=== PATIENT | female | born 1965 | race Caucasian/White ===

== ENCOUNTER 2017-11-23 02:01 | Emergency (ER) | payer OTHER, MEDICAID, SELFPAY ==
--- NOTE | 2017-11-23 02:11 | DI.RAD.S_ITS ---
PROCEDURE: XR CHEST 1V INDICATIONS: cough TECHNIQUE: One view of the chest was acquired. COMPARISON: None. FINDINGS: Surgical changes and devices: None. Lungs and pleura: No pleural effusions or pneumothorax. Mild increased bronchovascular markings and bilateral hilar region are seen with mild bronchial wall thickening suggestive of reactive airway disease. No focal infiltrate. Mediastinum: Mediastinal contours appear normal. Heart size is normal. Bones and chest wall: No suspicious bony lesions. Overlying soft tissues appear unremarkable. IMPRESSION: Suggestion of mild reactive airway disease. No definite focal infiltrate or gross pneumothorax. Dictated by: Davy Rees M.D. on 11/23/2017 at 8:14 Approved by: Davy Rees M.D. on 11/23/2017 at 8:16
[2017-11-23 02:12] VITALS: BP 155/91; PULSE 100; RESP 20; TEMP 36.6; O2SAT 96; BMI 44.3
--- NOTE | 2017-11-23 02:14 | ED.URI ---
HPI - URI/Sore Throat General Chief Complaint: Upper Respiratory Symptoms Stated Complaint: coughing so hard ribs/back hurt/hard to breath Time Seen by Provider: 11/23/17 02:10 Source: patient Mode of arrival: ambulatory Limitations: no limitations History of Present Illness HPI Narrative: 52-year-old female here for 5 days of a cough. Is nonproductive. Does have an albuterol inhaler at home which she takes but states this is not helping. No fevers But does feel like her face is flushed. States that she has been coughing so much that her sides hurt And she has been having problems sleeping. Related Data Home Medications Medication Instructions Recorded Confirmed citalopram 20 mg PO QPM #0 02/13/17 hydrochlorothiazide 25 mg PO QPM #0 02/13/17 lamotrigine 150 mg PO QPM #0 02/13/17 albuterol sulfate [Proventil HFA] 2 puff INH PRN PRN #0 03/10/17 diclofenac sodium [Voltaren] 1 laron TOPICAL QID #0 03/10/17 divalproex [Depakote ER] 500 mg PO QPM #0 03/10/17 Previous Rx's Medication Instructions Recorded diazepam [Valium] 5 mg PO Q8HP PRN #10 tab 06/07/17 meloxicam [Mobic] 7.5 mg PO BIDCC #20 tab 06/07/17 benzonatate 100 mg PO TID PRN #20 cap 11/23/17 Allergies Allergy/AdvReac Type Severity Reaction Status Date / Time No Known Allergies Allergy Uncoded 06/22/17 11:47 Review of Systems Constitutional Denies chills and Denies fever(s) Cardiovascular Denies chest pain and Denies dyspnea Respiratory Reports cough and Denies dyspnea Gastrointestinal Gastrointestinal: Denies abdominal pain Musculoskeletal Comments: Ribs hurt Integumentary/Breasts Denies lesions and Denies rash Hematologic/Lymphatic Denies easy bleeding and Denies easy bruising [facility] Medical History Healthy adult (Acute) Surgical History No pertinent past surgical history (Acute) Social History Smoking Status: Current every day smoker Exam Initial Vital Signs Initial Vital Signs: Vital Signs Temperature 97.8 F 11/23/17 02:12 Pulse Rate 100 H 11/23/17 02:12 Respiratory Rate 20 11/23/17 02:12 Blood Pressure 155/91 H 11/23/17 02:12 Pulse Oximetry 96 11/23/17 02:12 Const General: cooperative and comfortable Resp Effort & Inspection: normal respiratory effort Auscultation: clear to auscultation bilaterally, no rales, no rhonchi and no wheezes Cardio Rate: regular rate Rhythm: regular rhythm Skin Lesions: no lesions Rashes: no rashes Neuro General: alert, awake and oriented x3 Extrem General: normal to inspection and capillary refill normal Psych Appearance: grossly normal and well kempt Course Orders Ordered: ED Orders 11/23/17 02:11 XR chest 1V Stat Vital Signs - 8 hr 11/23/17 02:12 Temperature 97.8 F Pulse Rate 100 H Respiratory Rate 20 Blood Pressure 155/91 H Pulse Oximetry 96 MDM - URI/Sore Throat Imaging Data Chest x-ray: Attestation: I personally reviewed and interpreted this imaging study as follows: My impression: no pneumonia, no pneumothorax, normal size heart MDM Narrative Medical decision making narrative: no pneumonia on the chest x-ray. Afebrile. No wheezing on exam. No indication for antibiotics. We did discuss treatment methods for the cough. No signs of rib fractures. Patient was given return precautions. She expressed understanding and agreement plan. Discharge Plan Departure Clinical Impression: Cough Instructions: Cough (Alternative Therapy), Cough Activity Restrictions/Additional Instructions: call your primary care doctor for follow-up. Sometimes a cough like this can last for several days. Make sure your drinking plenty of fluids. Return to the emergency department for any new or worsening symptoms. Prescriptions: New benzonatate 100 mg capsule 100 mg PO TID PRN (Reason: cough) Qty: 20 RF: 0 No Action lamotrigine 150 MG tablet 150 mg PO QPM Qty: 0 RF: 0 citalopram 20 MG tablet 20 mg PO QPM Qty: 0 RF: 0 hydrochlorothiazide 25 MG tablet 25 mg PO QPM Qty: 0 RF: 0 divalproex [Depakote ER] 500 MG tablet extended release 24 hr 500 mg PO QPM Qty: 0 RF: 0 albuterol sulfate [Proventil HFA] 90 MCG/PUFF HFA aerosol inhaler 2 puff INH PRN PRNQty: 0 RF: 0 diclofenac sodium [Voltaren] 1 % gel 1 laron Topical QID Qty: 0 RF: 0 meloxicam [Mobic] 7.5 MG tablet 7.5 mg PO BIDCC Qty: 20 RF: 0 diazepam [Valium] 5 MG tablet 5 mg PO Q8HP PRNQty: 10 RF: 0
[2017-11-23 02:35] VITALS: BP 155/91; PULSE 100; RESP 20; TEMP 36.6; O2SAT 96; BMI 44.3
[2017-11-23] MEDS: BENZONATATE 100 MG CAPSULE PO (02:43)
== END 2017-11-23 02:46 | disposition home or self-care (01) ==
PROVIDERS: Emergency Provider Emergency Medicine
DX: R05 Cough (principal)
CPT/HCPCS: 71045; 99282; 99283

== ENCOUNTER 2018-02-04 18:28 | Emergency (ER) | payer OTHER, MEDICAID, SELFPAY ==
[2018-02-04 18:38] VITALS: BP 139/89; PULSE 103; RESP 15; TEMP 36.7; O2SAT 99
--- NOTE | 2018-02-04 19:00 | ED.BACK ---
HPI - Back Pain/Injury <MIGUELITO Matthews - Last Filed: 02/04/18 22:10> General Chief Complaint: Back Pain/Injury Stated Complaint: states rib pain from coughing Time Seen by Provider: 02/04/18 19:01 Source: patient Mode of arrival: ambulatory Limitations: no limitations History of Present Illness HPI Narrative: 52-year-old female with history of bipolar resume and hyperthyroidism is an everyday smoker here for complaint of pain into her left lower rib cage over the past several days. She states she had pain to the ribcage is 1 month ago when she had a respiratory illness. She states that the pain room to her ribcage improved. She states that her return to the left side several days ago. She denies any trauma to the area. She denies any recent cough no fevers no chills. She reports increased pain with palpation to the area or movement. She denies any shortness of breath. She denies any other concerns or complaints at this time. Related Data Home Medications Medication Instructions Recorded Confirmed citalopram 20 mg PO QPM #0 02/13/17 hydrochlorothiazide 25 mg PO QPM #0 02/13/17 lamotrigine 150 mg PO QPM #0 02/13/17 albuterol sulfate [Proventil HFA] 2 puff INH PRN PRN #0 03/10/17 diclofenac sodium [Voltaren] 1 laron TOPICAL QID #0 03/10/17 divalproex [Depakote ER] 500 mg PO QPM #0 03/10/17 Previous Rx's Medication Instructions Recorded diazepam [Valium] 5 mg PO Q8HP PRN #10 tab 06/07/17 meloxicam [Mobic] 7.5 mg PO BIDCC #20 tab 06/07/17 benzonatate 100 mg PO TID PRN #20 cap 11/23/17 cyclobenzaprine 10 mg PO TID PRN #12 tab 02/04/18 Allergies Allergy/AdvReac Type Severity Reaction Status Date / Time No Known Drug Allergies Allergy Verified 02/04/18 19:57 Review of Systems <MIGUELITO Matthews - Last Filed: 02/04/18 22:10> Constitutional Denies chills, Denies fever(s), Denies lethargy and Denies weakness Eyes Denies change in vision, Denies eye discharge, Denies irritation and Denies loss of vision ENT Ears, Nose, Mouth, and Throat: Denies change in voice, Denies neck pain, Denies sore throat and Denies throat swelling Cardiovascular Denies chest pain, Denies irregular heart rhythm, Denies lightheadedness, Denies palpitations and Denies orthopnea Respiratory Denies wheezing Comments: Pain to left lower lateral rib cage Gastrointestinal Gastrointestinal: Denies abdominal pain, Denies change in bowel habits, Denies diarrhea, Denies nausea and Denies vomiting Genitourinary Denies hematuria, Denies flank pain, Denies urinary incontinence and Denies urinary urgency Musculoskeletal Denies neck pain Integumentary/Breasts Denies pruritus, Denies erythema, Denies rash and Denies wounds Neurologic Denies confusion, Denies loss of vision and Denies weakness Psychiatric Denies anxiety, Denies confusion, Denies depression, Denies homicidal ideation and Denies suicidal ideation Endocrine Denies palpitations Hematologic/Lymphatic Denies easy bruising Allergic/Immunologic Denies urticaria, Denies throat swelling and Denies wheezing Exam <MIGUELITO Matthews - Last Filed: 02/04/18 22:10> Initial Vital Signs Initial Vital Signs: Vital Signs Temperature 98.1 F 02/04/18 18:38 Pulse Rate 103 H 02/04/18 18:38 Respiratory Rate 15 02/04/18 18:38 Blood Pressure 139/89 02/04/18 18:38 Pulse Oximetry 99 02/04/18 18:38 Const General: cooperative and well developed Nutritional Appearance: well nourished Orientation: alert, awake, oriented x3 and not confused [facility] Mouth: oral mucosae normal and moist mucous membranes Eyes Conjunctivae: conjunctivae normal Sclera: sclerae normal Pupils: PERRL EOM: EOM intact bilaterally Resp Effort & Inspection: normal respiratory effort, able to speak in complete sentences, no respiratory distress and no use of accessory muscles Auscultation: clear to auscultation bilaterally, no rales, no rhonchi and no wheezes Cardio Rate: regular rate Rhythm: regular rhythm Heart Sounds: no click, no gallops, no murmurs and no rubs Pulses: normal peripheral pulses Skin General: no rashes or lesions noted, No jaundice and No petechiae Neuro General: alert, oriented x3, gait normal and no focal motor deficits Speech: speech normal <Roger Leger DO - Last Filed: 02/05/18 05:56> Initial Vital Signs Initial Vital Signs: Vital Signs Temperature 98.1 F 02/04/18 18:38 Pulse Rate 103 H 02/04/18 18:38 Respiratory Rate 15 02/04/18 18:38 Blood Pressure 139/89 02/04/18 18:38 Pulse Oximetry 99 02/04/18 18:38 Course <MIGUELITO Matthews - Last Filed: 02/04/18 22:10> Orders Ordered: Discontinued Medications Cyclobenzaprine HCl (Flexeril 10 Mg Prepack) 1 bottle MISC SEEINSTR ONE Stop: 02/04/18 19:54 Last Admin: 02/04/18 19:57 Dose: 1 bottle Vital Signs - 8 hr 02/04/18 18:38 02/04/18 20:00 Temperature 98.1 F Pulse Rate 103 H 102 H Respiratory Rate 15 15 Blood Pressure [Left Arm] 139/89 136/94 H Pulse Oximetry 99 99 <Roger Leger DO - Last Filed: 02/05/18 05:56> Orders Ordered: Discontinued Medications Cyclobenzaprine HCl (Flexeril 10 Mg Prepack) 1 bottle MISC SEEINSTR ONE Stop: 02/04/18 19:54 Last Admin: 02/04/18 19:57 Dose: 1 bottle Vital Signs - 8 hr 02/04/18 18:38 02/04/18 20:00 Temperature 98.1 F Pulse Rate 103 H 102 H Respiratory Rate 15 15 Blood Pressure [Left Arm] 139/89 136/94 H Pulse Oximetry 99 99 MDM - Back Pain/Injury <MIGUELITO Matthews - Last Filed: 02/04/18 22:10> Imaging Data Chest x-ray: Radiologist's impression: [address] [address] XRay Report Signed Patient: Rivka Lara KMR#: [id number] : 1965Acct:[id number] Age/Sex: 52 / FDate of Service: 02/04/18 Loc: ED Accession Number: [id number] Procedure: XR ribs LT min 3V w CXR1V Ordering Provider: Patrick Reed PROCEDURE: XR RIBS LT MIN 3V W CXR1V INDICATIONS: Pain to left lateral lower rib cage for last week TECHNIQUE: 3 views of the left ribs were acquired, along with a single view chest. COMPARISON: None. FINDINGS: Surgical changes and devices: None. Bones and chest wall: No fractures or dislocations. No suspicious bony lesions. Overlying soft tissues appear unremarkable. Lungs and pleura: No pleural effusions or pneumothorax. Lungs appear clear. Mediastinum: Mediastinal contours appear normal. Heart size is normal. IMPRESSION: No acute fracture. No osseous lesion. If clinical suspicion and/or symptoms persist, further assessment with repeat plainfilms, or advanced imaging (e.g., CT or bone scan) may be helpful for further assessment. Dictated by: Lashay Valenzuela M.D. on 02/04/2018 at 19:22 Approved by: Lashay Valenzuela M.D. on 02/04/2018 at 19:23 MDM Narrative Medical decision making narrative: X-ray of the chest and left ribcage was obtained was negative for any acute findings. Signs and symptoms presents as a strain into the left chest wall area. Rest area. [id number] ibuprofen as needed for any discomfort. Cyclobenzaprine as prescribed for any muscle spasms. Follow up with primary care provider later this week. For any worsening symptoms return to the emergency room. Discharge Plan Departure Patient Disposition: Home Clinical Impression: Left-sided chest wall pain Discharge Date/Time: 02/04/18 20:06 Interventions: ED Discharge Assessment Last Done: 02/04/18 20:05 Instructions: DI for Atypical Chest Pain Activity Restrictions/Additional Instructions: X-ray of the chest and left ribcage was obtained was negative for any acute findings. Signs and symptoms presents as a strain into the left chest wall area. Rest area. [id number] ibuprofen as needed for any discomfort. Cyclobenzaprine a muscle relaxer as prescribed for any muscle spasms no driving while on the muscle relaxer. Follow up with primary care provider later this week. For any worsening symptoms return to the emergency room. Prescriptions: New cyclobenzaprine 10 mg tablet 10 mg PO TID PRN (Reason: muscle spasm) Qty: 12 RF: 0 No Action lamotrigine 150 MG tablet 150 mg PO QPM Qty: 0 RF: 0 citalopram 20 MG tablet 20 mg PO QPM Qty: 0 RF: 0 hydrochlorothiazide 25 MG tablet 25 mg PO QPM Qty: 0 RF: 0 divalproex [Depakote ER] 500 MG tablet extended release 24 hr 500 mg PO QPM Qty: 0 RF: 0 albuterol sulfate [Proventil HFA] 90 MCG/PUFF HFA aerosol inhaler 2 puff INH PRN PRNQty: 0 RF: 0 diclofenac sodium [Voltaren] 1 % gel 1 laron Topical QID Qty: 0 RF: 0 meloxicam [Mobic] 7.5 MG tablet 7.5 mg PO BIDCC Qty: 20 RF: 0 diazepam [Valium] 5 MG tablet 5 mg PO Q8HP PRNQty: 10 RF: 0 benzonatate 100 mg capsule 100 mg PO TID PRN (Reason: cough) Qty: 20 RF: 0 Referrals: [facility] [Provider Group] <Roger Leger, DO - Last Filed: 02/05/18 05:56> Cosign ED Attending Thais Attestation: I was immediately available in the department for consultation. Documentation has been reviewed. I agree with assessment and plan.
--- NOTE | 2018-02-04 19:07 | DI.RAD.S_ITS ---
PROCEDURE: XR RIBS LT MIN 3V W CXR1V INDICATIONS: Pain to left lateral lower rib cage for last week TECHNIQUE: 3 views of the left ribs were acquired, along with a single view chest. COMPARISON: None. FINDINGS: Surgical changes and devices: None. Bones and chest wall: No fractures or dislocations. No suspicious bony lesions. Overlying soft tissues appear unremarkable. Lungs and pleura: No pleural effusions or pneumothorax. Lungs appear clear. Mediastinum: Mediastinal contours appear normal. Heart size is normal. IMPRESSION: No acute fracture. No osseous lesion. If clinical suspicion and/or symptoms persist, further assessment with repeat plainfilms, or advanced imaging (e.g., CT or bone scan) may be helpful for further assessment. Dictated by: Lashay Valenzuela M.D. on 02/04/2018 at 19:22 Approved by: Lashay Valenzuela M.D. on 02/04/2018 at 19:23
[2018-02-04] MEDS: CYCLOBENZAPRINE 10 MG PREPACK 1 BOTTLE MISC (19:57)
[2018-02-04 20:00] VITALS: BP 136/94; PULSE 102; RESP 15; O2SAT 99
== END 2018-02-04 20:06 | disposition home or self-care (01) ==
PROVIDERS: Emergency Provider Nurse Practitioner Family
DX: R07.89 Other chest pain (principal)
CPT/HCPCS: 71101; 99282; 99283

== ENCOUNTER → 2018-04-11 10:48 | Outpatient (CLI) | payer OTHER, MEDICAID, SELFPAY ==
--- NOTE | 2018-04-11 | DI.RAD.S_ITS ---
PROCEDURE: XR LUMBAR SPINE 2-3V INDICATIONS: chronic low back pain TECHNIQUE: 3 views of the lumbar spine were acquired. COMPARISON: [facility], CR, SPINE LUMB 2 OR 3VW, 07/20/2011, 15:17. [facility], CR, SPINE LUMB 2 OR 3VW, 06/27/2011, 11:37. FINDINGS: Bones: 5 [id number] vertebrae are present. There is normal bony alignment. No vertebral body compression fractures. No suspicious bony lesions. There is degenerative disc disease, moderate to severe at L4-L5 and L5-S1, moderate at L3-L4 and mild at L2 and L3. There is severe patellar sulci at L4-L5 and L5-S1. Soft tissues: Overlying bowel gas pattern is normal. No suspicious soft tissue calcifications. IMPRESSION: Degenerative disc and facet disease in lumbar spine as described. Dictated by: Torrie Vasquez M.D. on 04/11/2018 at 12:16 Approved by: Torrie Vasquez M.D. on 04/11/2018 at 12:20
[2018-04-11 12:07] LABS: Hemoglobin A1C% w Est Avg Glu 9.1 % (4.0-6.0)
[2018-04-11 12:15] LABS: Hematocrit 50.3 % (36-46); Hemoglobin 17.3 g/dL (12.0-16.0); Mean Corpuscular HGB Conc 34.3 % (30-36); Mean Corpuscular Hemoglobin 29.6 PG (26-34); Mean Corpuscular Volume 86.3 fL (80-100); Platelet Count 306 X10^3/uL (150-400); Red Blood Cell Count 5.82 X10^6/uL (4.0-5.2); Red Cell Distribution Width 13.8 % (11.6-14.8); White Blood Cell Count 10.7 X10^3/uL (4.5-11.0)
[2018-04-11 12:18] LABS: Add Manual Diff / Slide Review YES
[2018-04-11 12:32] LABS: Alanine Aminotransferase 66 IU/L (9-52); Albumin 4.6 g/dL (3.5-5.0); Albumin Globulin Ratio 1.2 (1.0-2.8); Alkaline Phosphatase 119 U/L (38-126); Aspartate Aminotransferase 47 IU/L (14-36); BUN Creatinine Ratio 21.3 (6-22); Bilirubin Total 0.6 mg/dL (0.2-1.3); Blood Urea Nitrogen 17 mg/dL (7-17); Calcium 9.6 mg/dL (8.4-10.2); Carbon Dioxide 29 mmol/L (22-32); Chloride 94 mmol/L (98-107); Cholesterol 235 mg/dL (140-199); Estimated Glomerular Filt Rate > 60.0 mL/min (>60); Globulin 3.8 g/dL (1.7-4.1); Glucose 187 mg/dL (70-100); HDL Cholesterol 34 mg/dL (40-60); HEMOLYSIS < 15 (0-50); LDL Cholesterol Calculated 162 mg/dL (<100); Potassium 3.6 mmol/L (3.4-5.1); Sodium 136 mmol/L (137-145); Total Protein 8.4 g/dL (6.3-8.2); Triglycerides 193 mg/dL (35-150)
[2018-04-11 12:46] LABS: Vitamin D 25 Hydroxy (D3) 20.1 ng/mL (30.0-100.0)
[2018-04-11 12:51] LABS: Neutrophils Absolute Manual 7169 /uL (3000-5900); RBC Morphology Normal Morphology; Total Cells Counted 100
== END ==
PROVIDERS: PCP Student in an Organized Health Care Education/Training Program; Visit Provider Student in an Organized Health Care Education/Training Program
DX: M54.5 Low back pain (principal); T50.2X5A Adverse effect of carbonic-anhydrase inhibitors, benzothiadiazides and other diuretics, initial encounter; M51.36 Other intervertebral disc degeneration, lumbar region; M51.37 Other intervertebral disc degeneration, lumbosacral region; D75.1 Secondary polycythemia; E87.6 Hypokalemia; I10 Essential (primary) hypertension; E66.9 Obesity, unspecified; R73.9 Hyperglycemia, unspecified; E55.9 Vitamin D deficiency, unspecified; G89.29 Other chronic pain; F17.200 Nicotine dependence, unspecified, uncomplicated; Z79.899 Other long term (current) drug therapy
CPT/HCPCS: 36415; 72100; 80053; 80061; 82306; 83036; 85025

== ENCOUNTER → 2018-08-08 15:08 | Outpatient (CLI) | payer OTHER, MEDICAID, SELFPAY ==
[2018-08-08 16:14] LABS: Hemoglobin A1C% w Est Avg Glu 8.4 % (4.0-6.0)
[2018-08-08 17:06] LABS: Cholesterol 148 mg/dL (140-199); HDL Cholesterol 36 mg/dL (40-60); LDL Cholesterol Calculated 70 mg/dL (<100); Triglycerides 209 mg/dL (35-150)
[2018-08-08 18:07] LABS: Creatinine Urine Random 122.9 mg/dL
[2018-08-08 18:11] LABS: Microalbumi Creatinin Ratio Ur 9.7 ug/mg CR (<30); Microalbumin Urine Random 1.2 mg/dL (0-1.6)
== END ==
PROVIDERS: PCP Student in an Organized Health Care Education/Training Program; Visit Provider Student in an Organized Health Care Education/Training Program
DX: E11.69 Type 2 diabetes mellitus with other specified complication (principal); E11.9 Type 2 diabetes mellitus without complications; E55.9 Vitamin D deficiency, unspecified; E78.2 Mixed hyperlipidemia; I10 Essential (primary) hypertension; Z79.899 Other long term (current) drug therapy
CPT/HCPCS: 36415; 80061; 82043; 82570; 83036

== ENCOUNTER → 2019-02-20 08:38 | Outpatient (CLI) | payer OTHER, MEDICAID, SELFPAY ==
[2019-02-20 09:35] LABS: Hemoglobin A1C% w Est Avg Glu 7.6 % (4.0-6.0)
== END ==
PROVIDERS: PCP Student in an Organized Health Care Education/Training Program; Visit Provider Student in an Organized Health Care Education/Training Program
DX: E11.69 Type 2 diabetes mellitus with other specified complication (principal); E78.2 Mixed hyperlipidemia
CPT/HCPCS: 36415; 83036

== ENCOUNTER → 2019-08-16 11:46 | Outpatient (CLI) | payer OTHER, MEDICAID, SELFPAY ==
[2019-08-16 12:46] LABS: Hematocrit 46.2 % (36-46); Hemoglobin 15.6 g/dL (12.0-16.0); Mean Corpuscular HGB Conc 33.7 % (30-36); Mean Corpuscular Volume 86.1 fL (80-100); Platelet Count 299 X10^3/uL (150-400); Red Blood Cell Count 5.37 X10^6/uL (4.0-5.2); Red Cell Distribution Width 14.6 % (11.6-14.8); White Blood Cell Count 11.3 X10^3/uL (4.5-11.0)
[2019-08-16 12:50] LABS: Hemoglobin A1C% w Est Avg Glu 7.9 % (4.0-6.0)
[2019-08-16 13:06] LABS: Alanine Aminotransferase 40 IU/L (<35); Albumin 3.8 g/dL (3.5-5.0); Albumin Globulin Ratio 1.1 (1.0-2.8); Alkaline Phosphatase 155 U/L (38-126); Aspartate Aminotransferase 31 IU/L (14-36); BUN Creatinine Ratio 22.5 (6-22); Bilirubin Total 0.5 mg/dL (0.2-1.3); Blood Urea Nitrogen 16 mg/dL (7-17); Calcium 9.6 mg/dL (8.4-10.2); Carbon Dioxide 32 mmol/L (22-32); Chloride 95 mmol/L (98-107); Estimated Glomerular Filt Rate > 60.0 mL/min (>60); Globulin 3.6 g/dL (1.7-4.1); Glucose 263 mg/dL (70-100); HEMOLYSIS < 15 (0-50); Potassium 3.7 mmol/L (3.4-5.1); Sodium 137 mmol/L (137-145); Total Protein 7.4 g/dL (6.3-8.2)
[2019-08-16 13:18] LABS: Vitamin D 25 Hydroxy (D3) 22.2 ng/mL (30.0-100.0)
== END ==
PROVIDERS: PCP Student in an Organized Health Care Education/Training Program; Referring Provider Student in an Organized Health Care Education/Training Program; Visit Provider Student in an Organized Health Care Education/Training Program
DX: E11.9 Type 2 diabetes mellitus without complications (principal); E66.01 Morbid (severe) obesity due to excess calories; R79.89 Other specified abnormal findings of blood chemistry; E55.9 Vitamin D deficiency, unspecified; E11.69 Type 2 diabetes mellitus with other specified complication; E78.2 Mixed hyperlipidemia; F17.200 Nicotine dependence, unspecified, uncomplicated; I10 Essential (primary) hypertension
CPT/HCPCS: 36415; 80053; 82306; 83036; 85027

== ENCOUNTER → 2019-09-04 07:11 | Outpatient (CLI) | payer OTHER, MEDICAID, SELFPAY ==
--- NOTE | 2019-09-04 07:11 | DI.US.S_ITS ---
PROCEDURE: US ABDOMEN COMPLETE INDICATIONS: ELEVATED LFTS TECHNIQUE: Real-time scanning was performed of the abdominal and retroperitoneal organs, with image documentation. COMPARISON: [facility], CT, ABDOMEN/PELVIS WITH CONTRAST, 03/10/2017, 11:35. [facility], US, ABDOMEN COMPLETE, 02/13/2017, 9:09. FINDINGS: Liver: Diffuse echogenic liver. No focal lesion identified. Enlarged liver measures approximately 20.3 cm in length. Gallbladder: Surgically absent Biliary ducts: Intrahepatic bile ducts are non-dilated. Extrahepatic bile ducts are not well seen due to severely echogenic liver. Pancreas: Not seen sonographically. Spleen: Spleen is normal in size and homogeneous in echotexture. Kidneys: Kidneys are normal in size and echotexture. Right kidney measures 12.2 cm long; left kidney measures 12.9 cm long. No hydronephrosis or nephrolithiasis. No solid masses. Aorta: Not well seen sonographically. Iliacs: Not seen due to body habitus. IVC: Intrahepatic inferior vena cava is patent. Miscellaneous: No free abdominal fluid. IMPRESSION: Coarse echogenic liver suggesting diffuse hepatocellular disease/fatty infiltration. Please correlate with LFTs. Extra hepatic bile ducts are not well seen sonographically. Hepatomegaly Status post cholecystectomy. Dictated by: Guillermo Valdivia M.D. on 09/04/2019 at 9:18 Approved by: Guillermo Valdivia M.D. on 09/04/2019 at 9:22
== END ==
PROVIDERS: PCP Student in an Organized Health Care Education/Training Program; Referring Provider Student in an Organized Health Care Education/Training Program; Visit Provider Student in an Organized Health Care Education/Training Program
DX: R79.89 Other specified abnormal findings of blood chemistry (principal); R16.0 Hepatomegaly, not elsewhere classified; Z90.49 Acquired absence of other specified parts of digestive tract
CPT/HCPCS: 76700

== ENCOUNTER 2020-10-31 19:41 | Emergency (ER) | payer OTHER, MEDICAID, SELFPAY ==
[2020-10-31 20:19] VITALS: BP 153/91; PULSE 121; RESP 15; TEMP 36.6; O2SAT 93; BMI 41.8
--- NOTE | 2020-10-31 20:23 | DI.RAD.S_ITS ---
PROCEDURE: XR TOE RT MIN 2V INDICATIONS: dropped can on toe,hx DM TECHNIQUE: 3 views of the right toe(s) acquired. COMPARISON: None. FINDINGS: Bones: No acute fracture identified. Scattered degenerative subchondral sclerosis and spurring. Large plantar calcaneal spur. Mild 1st MTP joint degeneration. Soft tissues: No suspicious soft tissue densities. IMPRESSION: No fracture. If the patient's symptoms do not improve recommend followup radiographs in 10 days to assess for healing sclerosis/occult injury. Dictated by: Guillermo Valdivia M.D. on 10/31/2020 at 21:18 Approved by: Guillermo Valdivia M.D. on 10/31/2020 at 21:19
[2020-10-31 21:34] LABS: Appearance Urine UA SL CLOUDY; Bilirubin Urine UA NEGATIVE (NEGATIVE); Color Urine UA YELLOW; Glucose Urine UA NEGATIVE (Negative); Ketones Urine UA TRACE (NEGATIVE); Leukocyte Esterase Urine UA 1+ (NEGATIVE); Nitrite Urine UA NEGATIVE (Negative); Occult Blood Urine UA TRACE-LYSED (Negative); Protein Urine UA TRACE (Negative); Specific Gravity Urine UA >=1.030 (1.000-1.035); Urobilinogen Urine UA 0.2 E.U./dL (0.2)
[2020-10-31 21:44] LABS: Bacteria Urine Many (>30); Culture Indicated Urine Specimen Cultured; RBC Urine 0-1/HPF (0-5/HPF); Squamous Epithelial Cell Urine 10-30 /HPF (0-5/HPF); Transitional Epi Cells Urine 10-30/HPF (0-5/HPF); WBC Urine 10-30/HPF (0-5/HPF)
--- NOTE | 2020-10-31 22:38 | ED_ITS ---
HPI - Abdominal Pain General Chief Complaint: Urogenital-Female Stated Complaint: DIBETIC RT FOOT AND LEG SWELLING LOWER BACK PAIN Time Seen by Provider: 10/31/20 22:20 Source: patient Mode of arrival: Ambulatory Limitations: no limitations History of Present Illness HPI narrative: Patient is a 54-year-old female history of diabetes. Yesterday she dropped a large can of food on her right big toe. It is bruised it hurts to touch. At it did bleed initially but the bleeding is now well controlled and stopped. She is concerned because she has diabetes eye and worried it may be infected. She denies any redness fever or drainage. She is also concerned because she has right flank pain and right abdominal pain. She says that as she has had right back pain ongoing for the last month however over the last 1 or 2 days he is now has right lower quadrant pain. She denies any painful or frequent urination she vomited twice today. She is worried that she might have a kidney infection. She has a history of cholecystectomy no upper quadrant pain. She has not had any fever or chills. Related Data Previous Rx's Medication Instructions Recorded albuterol sulfate 90 mcg/actuation 2 puff INHALATION Q4-6H PRN #6.7 01/04/20 aerosol inhaler (Proventil HFA) gram lancets (E-Z Ject Lancets) #100 each 01/09/20 blood-glucose meter (Blood Glucose #1 each 02/20/20 Monitoring) blood sugar diagnostic (True #100 each 03/10/20 Metrix Glucose Test Strip) aspirin 81 mg tablet,delayed 81 mg PO DAILY #90 tab 09/22/20 release atorvastatin 40 mg tablet 40 mg PO BEDTIME #90 tab 09/22/20 citalopram 40 mg tablet 40 mg PO QPM #90 tab 09/22/20 divalproex 500 mg tablet,extended 500 mg PO QPM #90 tab 09/22/20 release 24 hr (Depakote ER) glipizide 10 mg tablet, extended 10 mg PO BID #180 tab 09/22/20 release 24 hr hydrochlorothiazide 25 mg tablet 25 mg PO QPM #90 tab 09/22/20 lamotrigine 150 mg tablet 150 mg PO QPM #90 tab 09/22/20 lisinopril 5 mg tablet 5 mg PO DAILY #90 tab 09/22/20 metformin 500 mg tablet 1,000 mg PO BID #360 tab 09/22/20 cephalexin 500 mg capsule 500 mg PO BID 7 Days #14 cap 11/01/20 Allergies Allergy/AdvReac Type Severity Reaction Status Date / Time No Known Drug Allergies Allergy Verified 10/31/20 20:19 Review of Systems Review of Systems Narrative: GENERAL: Denies chills, fatigue, malaise, fever, sweats, travel HEENT: Denies sinus pain, ear pain, sore throat, difficulty swallowing, neck pain RESPIRATORY: Denies dyspnea, cough, wheezing, hemoptysis, sputum. CARDIOVASCULAR: Denies chest pain, palpitations, orthopnea, edema GASTROINTESTINAL: See HPI : Denies dysuria, frequency, incontinence, hematuria, urinary retention, flank pain. MUSCULOSKELETAL: See HPI SKIN: No rash, no erythema, no pruritus NEUROLOGIC: Denies weakness, dizziness, headache, numbness, change in speech, confusion PSYCHIATRIC: No concerning psychosocial issues. 12 point review of systems is negative except for those stated above and HPI Patient History Surgical History No pertinent past surgical history Social History Smoking Status: Current every day smoker Smoking Status: Current every day smoker alcohol intake frequency: holidays/special occasions only Substance Use Type: does not use Exam Initial Vital Signs Initial Vital Signs: Vital Signs Temperature 97.9 F 10/31/20 20:19 Pulse Rate 121 H 10/31/20 20:19 Respiratory Rate 15 10/31/20 20:19 Blood Pressure 153/91 H 10/31/20 20:19 Pulse Oximetry 93 10/31/20 20:19 GENERAL: Alert 54-year-old female and in no acute distress. HEENT: Head atraumatic,EOMI, pupils reactive, face symmetric, moist mucous membranes CARDIOVASCULAR: Regular rate and rhythm without murmurs, rubs or gallops. RESPIRATORY: Breath sounds equal bilaterally, no wheezes rales or rhonchi. ABDOMEN: Soft, tenderness with rebound in right lower quadrant no guarding negative Giles sign no upper quadrant : Right CVA tenderness EXTREMITIES: Normal range of motion, no clubbing or edema. Neurovascularly intact NEUROLOGICAL: Alert and oriented x4.Normal gait and speech. Cranial nerves II through XII grossly intact. SKIN: Contusion noted on the right big toe no erythema no significant laceration tender to touch Course Orders Ordered: ED Orders 10/31/20 20:15 Complete Blood Count AUTO DIFF Stat Comprehensive Metabolic Panel Stat Lactate (Lactic Acid) Stat 10/31/20 20:23 XR toe RT min 2V Stat 10/31/20 20:25 Urinalysis and Microscopic Stat Urine Culture Stat 10/31/20 22:39 CT abdomen pelvis w con Stat 10/31/20 22:40 Blood Culture Stat Discontinued Medications Cefazolin Sodium (Cephalexin 250 Mg Prepack) 1 bottle MISC SEEINSTR ONE Stop: 11/01/20 00:37 Last Admin: 11/01/20 00:48 Dose: 500 mg Documented by: KODI Ketorolac Tromethamine (Ketorolac 30 Mg/Ml Vial) 15 mg IV NOW ONE Stop: 10/31/20 22:40 Last Admin: 10/31/20 22:58 Dose: 15 mg Documented by: SAVANNAH Vital Signs Vital signs: Vital Signs - 8 hr 10/31/20 20:19 11/01/20 00:51 11/01/20 00:54 Temperature 97.9 F Pulse Rate 121 H 104 H 104 H Respiratory Rate 15 17 16 Blood Pressure 153/91 H 132/71 132/71 Pulse Oximetry 93 94 97 MDM - Abdominal Pain Lab Data Result diagrams: 10/31/20 20:15 10/31/20 20:15 Labs: Lab Results 10/31/20 10/31/20 10/31/20 Range/Units 20:15 20:15 20:15 WBC 5.5 (4.5-11.0) X10^3/uL RBC 4.86 (4.0-5.2) X10^6/uL Hgb 15.1 (12.0-16.0) g/dL Hct 44.2 (36-46) % MCV 90.8 (80-100) fL MCH 31.1 (26-34) PG MCHC 34.2 (30-36) % RDW 13.4 (11.6-14.8) % Plt Count 179 (150-400) X10^3/uL Neut % (Auto) 63.4 (50-75) % Lymph % (Auto) 25.8 (25-40) % [place] % (Auto) 9.0 (3-14) % Eos % (Auto) 1.2 L (2-4) % Baso % (Auto) 0.6 (0-2) % Neut # (Auto) 3500 (4415-5097) /uL Lymph # (Auto) 1400 (2996-2327) /uL [place] # (Auto) 500 (0-900) /uL Eos # (Auto) 100 (0-450) /uL Baso # (Auto) 0 (0-100) /uL Sodium 139 (137-145) mmol/L Potassium 3.8 (3.4-5.1) mmol/L Chloride 100 (98-107) mmol/L Carbon Dioxide 33 H (22-32) mmol/L BUN 20 H (7-17) mg/dL Creatinine 0.75 (0.52-1.04) mg/dL Estimated GFR > 60.0 (>60) mL/min BUN/Creatinine Ratio 26.7 H (6-22) Glucose 128 H (70-100) mg/dL Lactate 1.7 (0.7-2.1) mmol/L Calcium 10.0 (8.4-10.2) mg/dL Total Bilirubin 0.4 (0.2-1.3) mg/dL AST 34 (14-36) IU/L ALT 40 H (<35) IU/L Alkaline Phosphatase 122 (38-126) U/L Total Protein 7.4 (6.3-8.2) g/dL Albumin 3.9 (3.5-5.0) g/dL Globulin 3.5 (1.7-4.1) g/dL Albumin/Globulin Ratio 1.1 (1.0-2.8) Urine Color Urine Appearance Urine pH (4.5-8.0) Ur Specific [place] (1.000-1.035) Urine Protein (Negative) Urine Glucose (UA) (Negative) g/dL Urine Ketones (NEGATIVE) Urine Occult Blood (Negative) Urine Nitrate (Negative) Urine Bilirubin (NEGATIVE) Urine Urobilinogen (0.2) E.U./dL Ur Leukocyte Esterase (NEGATIVE) Urine RBC (0-5/HPF) Urine WBC (0-5/HPF) Ur Squamous Epith Cells (0-5/HPF) Ur Transition Epith Cell (0-5/HPF) Urine Bacteria (None) Ur Culture Indicated? 10/31/20 Range/Units 20:25 WBC (4.5-11.0) X10^3/uL RBC (4.0-5.2) X10^6/uL Hgb (12.0-16.0) g/dL Hct (36-46) % MCV (80-100) fL MCH (26-34) PG MCHC (30-36) % RDW (11.6-14.8) % Plt Count (150-400) X10^3/uL Neut % (Auto) (50-75) % Lymph % (Auto) (25-40) % [place] % (Auto) (3-14) % Eos % (Auto) (2-4) % Baso % (Auto) (0-2) % Neut # (Auto) (2025-4237) /uL Lymph # (Auto) (4275-0316) /uL [place] # (Auto) (0-900) /uL Eos # (Auto) (0-450) /uL Baso # (Auto) (0-100) /uL Sodium (137-145) mmol/L Potassium (3.4-5.1) mmol/L Chloride (98-107) mmol/L Carbon Dioxide (22-32) mmol/L BUN (7-17) mg/dL Creatinine (0.52-1.04) mg/dL Estimated GFR (>60) mL/min BUN/Creatinine Ratio (6-22) Glucose (70-100) mg/dL Lactate (0.7-2.1) mmol/L Calcium (8.4-10.2) mg/dL Total Bilirubin (0.2-1.3) mg/dL AST (14-36) IU/L ALT (<35) IU/L Alkaline Phosphatase (38-126) U/L Total Protein (6.3-8.2) g/dL Albumin (3.5-5.0) g/dL Globulin (1.7-4.1) g/dL Albumin/Globulin Ratio (1.0-2.8) Urine Color Yellow Urine Appearance Sl cloudy Urine pH 5.0 (4.5-8.0) Ur Specific [place] >=1.030 H (1.000-1.035) Urine Protein Trace H (Negative) Urine Glucose (UA) Negative (Negative) g/dL Urine Ketones Trace H (NEGATIVE) Urine Occult Blood Trace-lysed (Negative) Urine Nitrate Negative (Negative) Urine Bilirubin Negative (NEGATIVE) Urine Urobilinogen 0.2 (0.2) E.U./dL Ur Leukocyte Esterase 1+ H (NEGATIVE) Urine RBC 0-1/hpf (0-5/HPF) Urine WBC 10-30/hpf H (0-5/HPF) Ur Squamous Epith Cells 10-30 /hpf H (0-5/HPF) Ur Transition Epith Cell 10-30/hpf H (0-5/HPF) Urine Bacteria Many (>30) H (None) Ur Culture Indicated? Specimen cultured Imaging Data CT scan - abdomen/pelvis: Radiologist's Impression: Preliminary report No acute findings. Non emergent incidental findings in the above report. Diffuse hypodense liver consistent with hepatic steatosis. Hepatomegaly. Normal kidneys no urolithiasis normal appendix. Extremity x-ray #1: Radiologist's Impression: PROCEDURE: XR TOE RT MIN 2V INDICATIONS: dropped can on toe,hx DM TECHNIQUE: 3 views of the right toe(s) acquired. COMPARISON: None. FINDINGS: Bones: No acute fracture identified. Scattered degenerative subchondral sclerosis and spurring. Large plantar calcaneal spur. Mild 1st MTP joint degeneration. Soft tissues: No suspicious soft tissue densities. IMPRESSION: No fracture. If the patient's symptoms do not improve recommend followup radiographs in 10 days to assess for healing sclerosis/occult injury. Dictated by: Guillermo Valdivia M.D. on 10/31/2020 at 21:18 Approved by: Guillermo Valdivia M.D. on 10/31/2020 at 21:19 [facility] Narrative Medical decision making narrative: Patient has already of symptoms urine is concerning for infection with bacteria but no leukocytes or nitrates. She has been having ongoing back pain for 1 month now having right lower quadrant pain. Possible kidney stone versus pyelonephritis versus appendicitis. CT is ordered. He has mild leukocytosis but is afebrile per id no other signs of sepsis or severe sepsis. Patient overall appears well and comfortable. She is getting frustrated with the long wait waiting for Radiology to read CT. CT does not show any acute findings no sign of appendicitis. Possible pyelonephritis versus musculoskeletal pain. Pain is really been ongoing for months. Will put her on antibiotics to see if it helps. She is given orthopedic shoe as well for her contusion on her foot, there is no fracture. She is requesting Nolan wrap as well. I discussed with her that it is important she check her feet daily because she does have neuropathy. Discharge Plan Departure Patient Disposition: Home Clinical Impression: UTI (urinary tract infection), Contusion of toe of right foot Activity Restrictions/Additional Instructions: *You have been diagnosed with UTI and bruising on *What to do: Thank you so much for your patience today and no it was difficult. Fortunately her CT scan does not show any sign of appendicitis. You do however have a bladder infection which does require antibiotics. He may wear orthopedic shoe or supportive shoe for the bruising on her foot. Please check her feet daily to be sure that there is no infection. *Continue to take medications as directed Keflex 500 mg twice a day for 7 days *Follow up with your primary care provider in 2-3 days *Return to ER if you should have increasing pain, fever, nausea vomiting or any new, worsening or concerning symptoms Prescriptions: New cephalexin 500 mg capsule 500 mg PO BID 7 Days Qty: 14 RF: 0 No Action albuterol sulfate [Proventil HFA] 90 mcg/actuation HFA aerosol inhaler 2 puff INHALATION Q4-6H PRN (Reason: shortness of breath or wheezing) Qty: 6.7 RF: 11 (DME) lancets [E-Z Ject Lancets] Misc See Dose Instructions .ROUTE .MEDSUPPLY Qty: 100 RF: 3 (DME) blood-glucose meter [Blood Glucose Monitoring] Kit See Dose Instructions .ROUTE .MEDSUPPLY Qty: 1 RF: 0 (DME) True Metrix Glucose Test Strip Strip See Dose Instructions .ROUTE .MEDSUPPLY Qty: 100 RF: 3 citalopram 40 mg tablet 40 mg PO QPM Qty: 90 RF: 3 aspirin 81 mg tablet,delayed release (DR/EC) 81 mg PO DAILY Qty: 90 RF: 3 atorvastatin 40 mg tablet 40 mg PO BEDTIME Qty: 90 RF: 3 divalproex [Depakote ER] 500 mg tablet extended release 24 hr 500 mg PO QPM Qty: 90 RF: 3 glipizide 10 mg tablet extended release 24hr 10 mg PO BID Qty: 180 RF: 1 hydrochlorothiazide 25 mg tablet 25 mg PO QPM Qty: 90 RF: 3 lamotrigine 150 mg tablet 150 mg PO QPM Qty: 90 RF: 3 lisinopril 5 mg tablet 5 mg PO DAILY Qty: 90 RF: 3 metformin 500 mg tablet 1,000 mg PO BID Qty: 360 RF: 1 Referrals: Paulie Jarrett MD [Primary Care Provider] -
--- NOTE | 2020-10-31 22:39 | DI.CT.S_ITS ---
PROCEDURE: CT ABDOMEN PELVIS W CON INDICATIONS: rlq pain TECHNIQUE: After the administration of IV contrast, axial sections were acquired from the lung bases to the pubic symphysis. Coronal and sagittal reformats were performed. For radiation dose reduction, the following was used: automated exposure control, adjustment of mA and/or kV according to patient size. COMPARISON: [facility], CT, ABDOMEN/PELVIS WITH CONTRAST, 03/10/2017, 11:35. [facility], CT, ABD/PELVIS W/CON (PNL), 12/08/2011, 2:37. FINDINGS: Image quality: This examination is limited by involuntary motion artifact. Lung bases: Unremarkable. Heart: No significant findings. ABDOMEN: Liver: Diffuse fatty liver infiltration is noted. No focal liver lesions are seen. The liver is prominent in size. Gallbladder: Removed. Biliary ducts: Unremarkable. Pancreas: Unremarkable. Spleen: Unremarkable. Adrenal Glands: Unremarkable. Kidneys and Ureters: Unremarkable. Stomach and Bowel: In this patient with this given history, scrutiny is given to the appendix. The appendix is well seen and is normal. No focal right lower quadrant inflammatory changes are seen. A small duodenal diverticulum is again seen. Peritoneum: No abnormal intraperitoneal fluid. No free air. Ventral Wall: No hernia. Abdominal Nodes: No retroperitoneal or mesenteric adenopathy by size criteria. Vessels: Aorta and inferior vena cava are normal in size. PELVIS: Pelvic Organs: This patient is status post hysterectomy. No adnexal masses are seen. Bladder: Unremarkable. Pelvic Nodes: No enlarged lymph nodes. Miscellaneous: No inguinal hernias are seen. Bones: Focal L4-L5 and L5-S1 degenerative change can be seen. Milder degenerative changes are seen elsewhere. IMPRESSION: Normal appendix. No focal right lower quadrant inflammatory changes are seen. No right adnexal abnormality can be seen. Incidental note is made of: Duodenal diverticulum Cholecystectomy Enlarged, fatty liver infiltration Focal lower lumbar spine degenerative change Hysterectomy Note: No significant discrepancy from the preliminary report. Dictated by: Don Huff M.D. on 11/01/2020 at 9:21 Approved by: Don Huff M.D. on 11/01/2020 at 9:24
[2020-10-31 22:44] LABS: Add Manual Diff / Slide Review NO; Basophils Absolute Auto 0 /uL (0-100); Basophils Percent Auto 0.6 % (0-2); Eosinophils Absolute Auto 100 /uL (0-450); Eosinophils Percent Auto 1.2 % (2-4); Hematocrit 44.2 % (36-46); Hemoglobin 15.1 g/dL (12.0-16.0); Lymphocytes Absolute Auto 1400 /uL (1100-4500); Lymphocytes Percent Auto 25.8 % (25-40); Mean Corpuscular HGB Conc 34.2 % (30-36); Mean Corpuscular Hemoglobin 31.1 PG (26-34); Mean Corpuscular Volume 90.8 fL (80-100); Monocytes Absolute Auto 500 /uL (0-900); Neutrophils Absolute Auto 3500 /uL (1500-7000); Neutrophils Percent Auto 63.4 % (50-75); Platelet Count 179 X10^3/uL (150-400); Red Blood Cell Count 4.86 X10^6/uL (4.0-5.2); Red Cell Distribution Width 13.4 % (11.6-14.8); White Blood Cell Count 5.5 X10^3/uL (4.5-11.0)
[2020-10-31 22:49] LABS: Alanine Aminotransferase 40 IU/L (<35); Albumin 3.9 g/dL (3.5-5.0); Albumin Globulin Ratio 1.1 (1.0-2.8); Alkaline Phosphatase 122 U/L (38-126); Aspartate Aminotransferase 34 IU/L (14-36); BUN Creatinine Ratio 26.7 (6-22); Bilirubin Total 0.4 mg/dL (0.2-1.3); Blood Urea Nitrogen 20 mg/dL (7-17); Carbon Dioxide 33 mmol/L (22-32); Chloride 100 mmol/L (98-107); Estimated Glomerular Filt Rate > 60.0 mL/min (>60); Globulin 3.5 g/dL (1.7-4.1); Glucose 128 mg/dL (70-100); HEMOLYSIS < 15 (0-50); Lactate (Lactic Acid) 1.7 mmol/L (0.7-2.1); Potassium 3.8 mmol/L (3.4-5.1); Sodium 139 mmol/L (137-145); Total Protein 7.4 g/dL (6.3-8.2)
[2020-10-31] MEDS: KETOROLAC 30 MG/ML VIAL 15 MG IV (22:58)
[2020-11-01] MEDS: cephALEXin 250 MG PREPACK 1 BOTTLE MISC (00:48)
[2020-11-01 00:51] VITALS: BP 132/71; PULSE 104; RESP 17; O2SAT 94
[2020-11-01 00:54] VITALS: BP 132/71; PULSE 104; RESP 16; O2SAT 97
== END 2020-11-01 00:56 | disposition home or self-care (01) ==
PROVIDERS: Emergency Provider Emergency Medicine; PCP Student in an Organized Health Care Education/Training Program
DX: N39.0 Urinary tract infection, site not specified (principal); S90.111A Contusion of right great toe without damage to nail, initial encounter; R10.9 Unspecified abdominal pain; M54.5 Low back pain; W22.8XXA Striking against or struck by other objects, initial encounter
CPT/HCPCS: 36415; 73660; 74177; 80053; 81001; 83605; 85025; 87040; 87077; 87086; 87186; 96374; 99284; J1885; Q9967

== ENCOUNTER → 2021-01-01 11:54 | Outpatient (CLI) | payer OTHER, MEDICAID, SELFPAY ==
--- NOTE | 2021-01-01 11:56 | DI.RAD.S_ITS ---
PROCEDURE: XR WRIST RT MIN 3V INDICATIONS: R wrist pain with flexion TECHNIQUE: 4 views of the wrist were acquired. COMPARISON: None. FINDINGS: Bones: No fractures or dislocations. No suspicious bony lesions. Mild osteoarthritic changes along radial aspect of right wrist are seen. Scaphoid view: Scaphoid is intact. Soft tissues: No suspicious soft tissue calcifications. IMPRESSION: No wrist fracture or dislocation. Scaphoid is intact. Mild osteoarthritic changes along radial aspect of right wrist. Dictated by: Davy Rees M.D. on 01/01/2021 at 12:28 Approved by: Davy Rees M.D. on 01/01/2021 at 12:28
== END ==
PROVIDERS: PCP Student in an Organized Health Care Education/Training Program; Referring Provider Nurse Practitioner; Visit Provider Nurse Practitioner
DX: M25.531 Pain in right wrist (principal)
CPT/HCPCS: 73110

== ENCOUNTER 2021-09-02 21:50 | Emergency (ER) | payer OTHER, MEDICAID, SELFPAY ==
[2021-09-02 21:55] VITALS: BP 153/72; PULSE 111; RESP 22; TEMP 36.7; O2SAT 100
--- NOTE | 2021-09-02 22:02 | DI.RAD.S_ITS ---
PROCEDURE: XR ANKLE RT MIN 3V INDICATIONS: pain/swelling/contusion TECHNIQUE: 3 views of the ankle were acquired. COMPARISON: None. FINDINGS: Bones: No acute fractures or dislocations. Ankle mortise is normally aligned. There is mild degeneration along the tibiotalar joint. There is also mild midfoot degeneration. No suspicious bony lesions. Soft tissues: Periarticular soft tissue swelling is present most prominent laterally. No tibiotalar joint effusion. Achilles tendon appears intact. There is a small corticated ossicle inferior to the medial malleolus suggestive of a prior avulsion injury. IMPRESSION: 1. No acute fracture or dislocation. 2. 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 3. Likely chronic avulsion fragment inferior to the medial malleolus. Dictated by: Tommy Trotter M.D. on 09/02/2021 at 23:32 Approved by: Tommy Trotter M.D. on 09/02/2021 at 23:34
[2021-09-02 22:42] LABS: COVID19 -Nasal RAPID Negative (Negative)
== END 2021-09-03 01:27 | disposition left against medical advice (07) ==
PROVIDERS: Emergency Medicine; PCP Student in an Organized Health Care Education/Training Program
DX: M25.571 Pain in right ankle and joints of right foot (principal); Z20.822 Contact with and (suspected) exposure to COVID-19
CPT/HCPCS: 73610; 87635; 99281; C9803

== ENCOUNTER → 2023-01-06 06:01 | Outpatient (CLI) | payer BC, SELFPAY ==
--- NOTE | 2023-01-06 06:09 | DI.RAD.S_ITS ---
PROCEDURE: XR LUMBAR SPINE 2-3V INDICATIONS: acute low back pain w R sciatica x 2 weeks TECHNIQUE: 3 views of the lumbar spine were acquired. COMPARISON: [facility], , XR LUMBAR SPINE 2-3V, 04/11/2018, 11:12. FINDINGS: Bones: 5 [id number] vertebrae are present. There is normal bony alignment. No vertebral body compression fractures. No suspicious bony lesions. Moderate multilevel lumbar spondylosis with degenerative endplate changes, disc space loss, and endplate osteophyte formation. Findings are most severe at L4-5 and L5-S1. Soft tissues: Overlying bowel gas pattern is normal. No suspicious soft tissue calcifications. IMPRESSION: Lumbar spine without acute osseous abnormalities. Moderate multilevel lumbar spondylosis most pronounced at L4-5 and L5-S1. Dictated by: Scot Foster M.D. on 01/06/2023 at 10:15 Approved by: Scot Foster M.D. on 01/06/2023 at 10:16
== END ==
PROVIDERS: PCP Student in an Organized Health Care Education/Training Program; Referring Provider Physician Assistant; Visit Provider Physician Assistant
DX: M54.41 Lumbago with sciatica, right side (principal); M47.816 Spondylosis without myelopathy or radiculopathy, lumbar region; M47.817 Spondylosis without myelopathy or radiculopathy, lumbosacral region
CPT/HCPCS: 72100

== ENCOUNTER → 2023-06-28 14:18 | Outpatient (CLI) | payer BC, SELFPAY ==
[2023-06-28 14:47] LABS: Add Manual Diff / Slide Review NO; Basophils Absolute Auto 100 /uL (0-100); Eosinophils Absolute Auto 200 /uL (0-450); Eosinophils Percent Auto 1.8 % (2-4); Hematocrit 44.6 % (36-46); Hemoglobin 15.1 g/dL (12.0-16.0); Lymphocytes Absolute Auto 3100 /uL (1100-4500); Lymphocytes Percent Auto 22.7 % (25-40); Mean Corpuscular HGB Conc 33.8 % (30-36); Mean Corpuscular Hemoglobin 28.8 PG (26-34); Mean Corpuscular Volume 85.1 fL (80-100); Monocytes Absolute Auto 900 /uL (0-900); Monocytes Percent Auto 6.6 % (3-14); Neutrophils Absolute Auto 9100 /uL (1500-7000); Neutrophils Percent Auto 67.9 % (50-75); Platelet Count 343 X10^3/uL (150-400); Red Blood Cell Count 5.24 X10^6/uL (4.0-5.2); Red Cell Distribution Width 15.2 % (11.6-14.8); White Blood Cell Count 13.4 X10^3/uL (4.5-11.0)
[2023-06-28 14:52] LABS: Hemoglobin A1C% w Est Avg Glu 8.3 % (4.0-6.0)
[2023-06-28 15:16] LABS: D Dimer 417 ng/ml (<500)
[2023-06-28 15:34] LABS: Creatinine Urine Random 174.5 mg/dL
[2023-06-28 15:40] LABS: Microalbumi Creatinin Ratio Ur 12.6 ug/mg CR (<30); Microalbumin Urine Random 2.2 mg/dL (0-1.6)
[2023-06-28 21:01] LABS: Alanine Aminotransferase 47 IU/L (<35); Albumin 4.2 g/dL (3.5-5.0); Albumin Globulin Ratio 1.4 (1.0-2.8); Alkaline Phosphatase 132 U/L (38-126); Aspartate Aminotransferase 36 IU/L (14-36); BUN Creatinine Ratio 18.4 (6-22); Bilirubin Total 0.5 mg/dL (0.2-1.3); Blood Urea Nitrogen 14 mg/dL (7-17); Calcium 9.8 mg/dL (8.4-10.2); Carbon Dioxide 33 mmol/L (22-32); Chloride 99 mmol/L (98-107); Cholesterol 136 mg/dL (140-199); Estimated Glomerular Filt Rate > 60 mL/min (>60); Globulin 3.1 g/dL (1.7-4.1); Glucose 117 mg/dL (70-100); HDL Cholesterol 43 mg/dL (40-60); HEMOLYSIS < 15 (0-50); LDL Cholesterol Calculated 67 mg/dL (<100); Sodium 138 mmol/L (137-145); Total Protein 7.3 g/dL (6.3-8.2); Triglycerides 129 mg/dL (35-150)
== END ==
LOC: LAB 14:19
PROVIDERS: PCP Family Medicine; Referring Provider Family Medicine; Visit Provider Family Medicine
DX: R06.2 Wheezing (principal); I10 Essential (primary) hypertension; E11.9 Type 2 diabetes mellitus without complications; E66.01 Morbid (severe) obesity due to excess calories; F31.9 Bipolar disorder, unspecified; F17.200 Nicotine dependence, unspecified, uncomplicated; M79.89 Other specified soft tissue disorders
CPT/HCPCS: 36415; 80053; 80061; 82043; 82570; 83036; 85025; 85379

== ENCOUNTER → 2024-02-21 11:21 | Outpatient (CLI) | payer BC, SELFPAY ==
[2024-02-21 11:52] LABS: Add Manual Diff / Slide Review NO; Basophils Absolute Auto 200 /uL (0-100); Basophils Percent Auto 1.4 % (0-2); Eosinophils Absolute Auto 200 /uL (0-450); Eosinophils Percent Auto 1.5 % (2-4); Hematocrit 46.8 % (36-46); Hemoglobin 15.4 g/dL (12.0-16.0); Lymphocytes Absolute Auto 2900 /uL (1100-4500); Lymphocytes Percent Auto 19.1 % (25-40); Mean Corpuscular HGB Conc 32.9 % (30-36); Mean Corpuscular Hemoglobin 28.7 PG (26-34); Mean Corpuscular Volume 87.4 fL (80-100); Monocytes Absolute Auto 800 /uL (0-900); Monocytes Percent Auto 5.4 % (3-14); Neutrophils Absolute Auto 11100 /uL (1500-7000); Neutrophils Percent Auto 72.6 % (50-75); Platelet Count 376 X10^3/uL (150-400); Red Blood Cell Count 5.36 X10^6/uL (4.0-5.2); White Blood Cell Count 15.4 X10^3/uL (4.5-11.0)
[2024-02-21 12:15] LABS: Alanine Aminotransferase 47 IU/L (<35); Albumin 3.7 g/dL (3.5-5.0); Albumin Globulin Ratio 1.1 (1.0-2.8); Alkaline Phosphatase 138 U/L (38-126); Aspartate Aminotransferase 32 IU/L (14-36); BUN Creatinine Ratio 30.1 (6-22); Bilirubin Total 0.4 mg/dL (0.2-1.3); Blood Urea Nitrogen 25 mg/dL (7-17); Calcium 9.7 mg/dL (8.4-10.2); Carbon Dioxide 34 mmol/L (22-32); Chloride 97 mmol/L (98-107); Estimated Glomerular Filt Rate > 60 mL/min (>60); Globulin 3.4 g/dL (1.7-4.1); Glucose 148 mg/dL (70-100); HEMOLYSIS < 15 (0-50); Potassium 4.1 mmol/L (3.4-5.1); Sodium 135 mmol/L (137-145); Total Protein 7.1 g/dL (6.3-8.2)
[2024-02-21 12:58] LABS: HIV 1 & 2 Ab/Ag 4th Gen Combo NEGATIVE (NEGATIVE); Hep C Virus Ab w/Reflex Quant NEGATIVE s/c (NEGATIVE)
[2024-02-21 22:20] LABS: Hemoglobin A1C% w Est Avg Glu 7.6 % (4.0-6.0)
== END ==
LOC: LAB 11:22
PROVIDERS: PCP Family Medicine; Referring Provider Family Medicine; Visit Provider Family Medicine
DX: E11.69 Type 2 diabetes mellitus with other specified complication (principal); E78.2 Mixed hyperlipidemia; J44.9 Chronic obstructive pulmonary disease, unspecified; F31.9 Bipolar disorder, unspecified; M54.41 Lumbago with sciatica, right side
CPT/HCPCS: 36415; 80053; 83036; 85025; 86803; 87389

== ENCOUNTER → 2025-01-10 15:33 | Outpatient (CLI) | payer BC, SELFPAY ==
[2025-01-10 16:59] LABS: Add Manual Diff / Slide Review NO; Hematocrit 40.7 % (36-46); Hemoglobin 14.0 g/dL (12.0-16.0); Lymphocytes Absolute Auto 2400 /uL (1100-4500); Mean Corpuscular HGB Conc 34.4 % (30-36); Mean Corpuscular Hemoglobin 30.1 PG (26-34); Mean Corpuscular Volume 87.5 fL (80-100); Platelet Count 313 X10^3/uL (150-400)
[2025-01-10 17:10] LABS: Alanine Aminotransferase 32 IU/L (<35); Albumin 4.0 g/dL (3.5-5.0); Albumin Globulin Ratio 1.4 (1.0-2.8); Alkaline Phosphatase 96 U/L (38-126); Blood Urea Nitrogen 30 mg/dL (7-17); Calcium 9.2 mg/dL (8.4-10.2); Carbon Dioxide 29 mmol/L (22-32); Chloride 97 mmol/L (98-107); Estimated Glomerular Filt Rate 42 mL/min (>60); Globulin 2.8 g/dL (1.7-4.1); Glucose 196 mg/dL (70-99); HEMOLYSIS < 15 (0-50); Potassium 4.1 mmol/L (3.4-5.1); Sodium 134 mmol/L (137-145); Total Protein 6.8 g/dL (6.3-8.2)
[2025-01-10 19:27] LABS: TSH w/ Reflex to FT4 2.20 uIU/mL (0.47-4.68)
== END ==
PROVIDERS: PCP Family Medicine; Referring Provider Physician Assistant; Visit Provider Physician Assistant
DX: K52.9 Noninfective gastroenteritis and colitis, unspecified (principal)
CPT/HCPCS: 36415; 80053; 84443; 85025

== ENCOUNTER → 2025-01-17 08:48 | Outpatient (CLI) | payer BC, SELFPAY | PROVIDERS: PCP Family Medicine; Referring Provider Physician Assistant; Visit Provider Physician Assistant | DX: K52.9 Noninfective gastroenteritis and colitis, unspecified (principal) | CPT/HCPCS: 87045; 87177 ==